=== PATIENT | male | born 1985 | race Hispanic/Latino ===

== ENCOUNTER 2022-11-06 18:40 | Emergency (ER) | payer OTHER ==
[2022-11-06] MEDS ORDERED: KETOROLAC 30 MG/ML INJ ONE (19:39)
[2022-11-06] MEDS ORDERED: ONDANSETRON 4 MG/2 ML VIAL ONE (19:40)
[2022-11-06] MEDS ORDERED: NA CHLORIDE 0.9% 1,000 ML ONE (19:40)
[2022-11-06 20:20] LABS: Absolute Lymphocytes (CBC) 2.6 K/uL (0.7-4.9); Hematocrit 50.4 % (39.6-49.0); Lymphocytes % 41.2 % (15.3-44.8); MCV 94.9 fL (80-100); MPV 8.7 fL (7.6-11.3); Platelets 218 thou/uL (152-406); RBC Red Blood Cell Count 5.32 M/uL (4.33-5.43)
[2022-11-06 20:34] LABS: Albumin 4.6 g/dL (3.4-5.0); Bilirubin Total 0.3 mg/dL (0.2-1.0); Protein, Total 8.4 g/dL (6.4-8.2)
[2022-11-06 20:35] LABS: Specific Gravity 1.008 (1.005-1.030); Urine Bacteria None Seen /HPF (<20); Urine Bilirubin NEGATIVE (Negative); Urine Blood Negative (Negative); Urine Clarity Clear (Clear); Urine Color Colorless (Yellow); Urine Glucose NEGATIVE (Negative); Urine Protein TRACE (Negative); Urine RBC <5 /HPF (None Seen); Urine Urobilinogen Normal (Normal)
--- NOTE | 2022-11-06 20:42 | RAD REPORT ---
EXAM DESCRIPTION: CT - Abdomen Pelvis W Contrast - 11/06/2022 8:31 pm CLINICAL HISTORY: Abdominal pain COMPARISON: none. TECHNIQUE: Computed axial tomography of the abdomen pelvis was obtained. 100 cc Isovue-300 was admin istered intravenously. Oral contrast was not requested which limits evaluation of bowel and appendix All CT scans are performed using dose optimization technique as appropriate and may include automated exposure control or mA/KV adjustment according to patient size. FINDINGS: The liver, spleen, pancreas, adrenal and kidneys appear unremarkable. There is no evidence of diverticulitis. Normal appendix IMPRESSION: No acute abnormality is displayed.
--- NOTE | 2022-11-06 20:55 | ER ---
Nurse's Notes [facility] Name: Orion Ruiz Age: 37 yrs Sex: Male : 1985 Arrival Date: 11/06/2022 Time: 18:40 Bed 17 Private MD: Diagnosis: Abdominal pain, unspecified Presentation: 11/06 19:06 Chief complaint: Patient states: left abdominal pain radiating to left leg starting lg3 this morning. no nausea/vomiting. Coronavirus screen: At this time, unable to obtain information related to travel outside the [place] At this time, the client does not indicate any symptoms associated with coronavirus-19. Ebola Screen: No symptoms or risks identified at this time. Initial Sepsis Screen: Does the patient meet any 2 criteria? No. Patient's initial sepsis screen is negative. Does the patient have a suspected source of infection? No. Patient's initial sepsis screen is negative. Risk Assessment: Do you want to hurt yourself or someone else? Patient reports no desire to harm self or others. Onset of symptoms was November 06, 2022. 19:06 Method Of Arrival: Ambulatory lg3 19:06 Acuity: LIBAN 3 lg3 Triage Assessment: 19:10 General: Appears in no apparent distress. distressed, Behavior is calm, cooperative. lg3 Pain: Complains of pain in anterior aspect of left lateral abdomen Pain radiates to left leg. EENT: No deficits noted. No signs and/or symptoms were reported regarding the EENT system. Neuro: No deficits noted. Lyons Agitation-Sedation Scale (RASS): 0 - Alert and Calm Level of Consciousness is awake, alert, obeys commands, Oriented to person, place, time, situation. Cardiovascular: No deficits noted. Denies chest pain, shortness of breath, Capillary refill < 3 seconds Clubbing of nail beds is absent JVD is absent Patient's skin is warm and dry. Respiratory: No deficits noted. Airway is patent Respiratory effort is even, unlabored, Respiratory pattern is regular, symmetrical. GI: Abdomen is flat, non-distended, Abd is soft X 4 quads Abdomen is tender to palpation in left lower quadrant. : No deficits noted. No signs and/or symptoms were reported regarding the genitourinary system. Derm: No deficits noted. No signs and/or symptoms reported regarding the dermatologic system. Skin is intact, is healthy with good turgor, Skin is dry, Skin is normal, Skin temperature is warm. Musculoskeletal: No deficits noted. Circulation, motion, and sensation intact. Range of motion: intact in all extremities. 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 - Social history:: Smoking status: Patient reports the use of cigarette tobacco products, Patient uses alcohol, on a daily basis. Screenin:31 [facility] ED Fall Risk Assessment (Adult) Score/Fall Risk Level 0 - 2 = Low Risk [facility] Oriented to surroundings, Maintained a safe environment, Hourly rounding (assess needs \T\ fall precautionary measures) done. Abuse screen: Denies threats or abuse. Denies injuries from another. Nutritional screening: No deficits noted. Tuberculosis screening: No symptoms or risk factors identified. Assessment: 19:23 Reassessment: See triage assessment. nj1 20:00 Reassessment: Patient appears in no apparent distress at this time. Patient and/or [facility] family updated on plan of care and expected duration. Pain level reassessed. Patient is alert, oriented x 3, equal unlabored respirations, skin warm/dry/pink. Pain: Complains of pain in abdomen and left leg Pain currently is 10 out of 10 on a pain scale. 21:00 Reassessment: Patient appears in no apparent distress at this time. No changes from [facility] previously documented assessment. Patient and/or family updated on plan of care and expected duration. Pain level reassessed. Patient is alert, oriented x 3, equal unlabored respirations, skin warm/dry/pink. Vital Signs: 19:06 BP 118 / 94; Pulse 103; Resp 17 S; Pulse Ox 98% on R/A; Weight 61.23 kg (R); Height 5 lg3 ft. 7 in. (R); Pain 10/10; 20:10 BP 117 / 85; Pulse 81; Resp 18; Pulse Ox 97% on R/A; nj1 21:00 BP 115 / 93; Pulse 84; Resp 18; Pulse Ox 99% on R/A; Pain 10/10; nj1 19:06 Body Mass Index 21.14 (61.23 kg, 170.18 cm) lg3 19:06 Pain Scale: Adult lg3 21:00 Pain Scale: Adult nj1 ED Course: 18:43 Patient arrived in ED. im 18:44 Siri Tapia [facility]-C [facility] kb 18:44 Jake Bourgeois MD is Attending Physician. kb 19:10 Triage completed. lg3 19:10 Arm band placed on left wrist. lg3 19:22 Khushbu Dumont, FAIZA is Primary Nurse. nj1 20:00 Patient has correct armband on for positive identification. Bed in low position. Call nj1 light in reach. Adult w/ patient. Provided Education on: fall precautions, call light. 20:05 Inserted saline lock: 20 gauge in right antecubital area, using aseptic technique. nj1 Blood collected. 20:31 CT Abd/Pelvis - IV Contrast Only In Process Unspecified. EDMS 21:00 No provider procedures requiring assistance completed. IV discontinued, intact, nj1 bleeding controlled. Administered Medications: 20:05 Drug: NS 0.9% IV 1000 ml Route: IV; Rate: 1 bolus; Site: right antecubital; nj1 21:00 Follow up: Response: No adverse reaction; IV Status: Completed infusion; IV Intake: nj1 1000ml 20:05 Drug: TORadol - Ketorolac IVP 15 mg Route: IVP; Site: right antecubital; nj1 21:00 Follow up: Response: No adverse reaction nj1 20:05 Drug: Ondansetron IVP 4 mg Route: IVP; Site: right antecubital; nj1 21:00 Follow up: Response: No adverse reaction nj1 Medication: 21:37 VIS not applicable for this client. nj1 Intake: 21:00 IV: 1000ml; Total: 1000ml. nj1 Outcome: 20:55 Discharge ordered by . kb 21:00 Discharged to home ambulatory, with family. nj1 21:00 Condition: stable 21:00 Discharge instructions given to patient, Instructed on discharge instructions, follow up and referral plans. medication usage, Demonstrated understanding of instructions, follow-up care, medications, Prescriptions given X 1. 21:19 Patient left the ED. rv1 Signatures: Dispatcher [employer] EDOR Siri Tapia FNP-C FNP-Ckb Taya Escobar, RN RN lg3 Andressa Painting rv1 Khushbu Dumont RN RN nj1 Tiff Howard
--- NOTE | 2022-11-06 20:55 | EDPHYS ---
Physician Documentation [facility] Name: Orion Ruiz Age: 37 yrs Sex: Male : 1985 Arrival Date: 11/06/2022 Time: 18:40 Bed 17 Private MD: ED Physician Jake Bourgeois HPI: 11/07 01:21 This 37 yrs old Male presents to ER via Ambulatory with complaints of Flank kb Pain, Leg Pain. 01:21 Patient reports left-sided abdominal pain that radiates down left leg that began this kb morning. Denies injury or trauma. Denies nausea, vomiting, diarrhea, fever. Denies urinary symptoms or blood in stool.. 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 - Social history:: Smoking status: Patient reports the use of cigarette tobacco products, Patient uses alcohol, on a daily basis. ROS: 11/07 01:20 Constitutional: Negative for fever, chills, and weight loss. kb Abdomen/GI: Positive for abdominal pain, Negative for nausea, vomiting, and diarrhea. All other systems are negative. Exam: 01:20 Constitutional: This is a well developed, well nourished patient who is awake, alert, kb and in no acute distress. Head/Face: Normocephalic, atraumatic. ENT: Moist Mucous membranes Cardiovascular: Regular rate and rhythm with a normal S1 and S2. No gallops, murmurs, or rubs. No pulse deficits. Respiratory: Respirations even and unlabored. No increased work of breathing. Talking in full sentences Skin: Warm, dry with normal turgor. Normal color. MS/ Extremity: Pulses equal, no cyanosis. Neurovascular intact. Full, normal range of motion. Neuro: Awake and alert, GCS 15, oriented to person, place, time, and situation. Moves all extremities. Normal gait. 01:20 Abdomen/GI: Inspection: abdomen appears normal, Bowel sounds: normal, Palpation: soft, in all quadrants, moderate abdominal tenderness, in the left upper quadrant and left lower quadrant. Vital Signs: 11/06 19:06 BP 118 / 94; Pulse 103; Resp 17 S; Pulse Ox 98% on R/A; Weight 61.23 kg (R); Height 5 lg3 ft. 7 in. (R); Pain 10/10; 20:10 BP 117 / 85; Pulse 81; Resp 18; Pulse Ox 97% on R/A; nj1 21:00 BP 115 / 93; Pulse 84; Resp 18; Pulse Ox 99% on R/A; Pain 10/10; nj1 19:06 Body Mass Index 21.14 (61.23 kg, 170.18 cm) lg3 19:06 Pain Scale: Adult lg3 21:00 Pain Scale: Adult nj1 MDM: 18:44 Patient medically screened. kb 11/07 01:20 Differential diagnosis: nephrolithiasis, pyelonephritis, UTI, diverticulitis, kb pancreatitis. Data reviewed: vital signs, nurses notes. Counseling: I had a detailed discussion with the patient and/or guardian regarding the historical points, exam findings, and any diagnostic results supporting the discharge/admit diagnosis, lab results, radiology results, the need for outpatient follow up, a family practitioner, to return to the emergency department if symptoms worsen or persist or if there are any questions or concerns that arise at home. 11/06 19:11 Order name: CBC with Diff; Complete Time: 20:24 kb 11/06 19:11 Order name: CMP; Complete Time: 20:54 kb 11/06 19:11 Order name: Lipase; Complete Time: 20:54 kb 11/06 19:11 Order name: Urinalysis w/ reflexes; Complete Time: 20:54 kb 11/06 19:11 Order name: CT Abd/Pelvis - IV Contrast Only; Complete Time: 20:54 kb 11/06 19:11 Order name: IV Saline Lock; Complete Time: 20:07 kb 11/06 19:11 Order name: Labs collected and sent; Complete Time: 20:07 kb Administered Medications: 11/06 20:05 Drug: NS 0.9% IV 1000 ml Route: IV; Rate: 1 bolus; Site: right antecubital; nj1 21:00 Follow up: Response: No adverse reaction; IV Status: Completed infusion; IV Intake: nj1 1000ml 20:05 Drug: TORadol - Ketorolac IVP 15 mg Route: IVP; Site: right antecubital; nj1 21:00 Follow up: Response: No adverse reaction nj1 20:05 Drug: Ondansetron IVP 4 mg Route: IVP; Site: right antecubital; nj1 21:00 Follow up: Response: No adverse reaction nj1 Disposition Summary: 11/06/22 20:55 Discharge Ordered Location: Home kb Condition: Stable kb Diagnosis - Abdominal pain, unspecified kb Followup: kb - With: Emergency Department - When: As needed - Reason: Worsening of condition Followup: kb - With: Private Physician - When: 2 - 3 days - Reason: Recheck today's complaints, Continuance of care, Re-evaluation by your physician Discharge Instructions: - Discharge Summary Sheet kb - Abdominal Pain, Adult, [id number] kb Forms: - Medication Reconciliation Form kb - Thank You Letter kb - Antibiotic Education kb - Prescription Opioid Use kb - Patient Portal Instructions kb - Leadership Thank You Letter kb Prescriptions: - Diclofenac Sodium 75 mg Oral tablet,delayed release (DR/EC) - take 1 tablet by ORAL route 2 times per day As needed; 30 tablet; Refills: 0, kb Product Selection Permitted Signatures: Dispatcher [employer] Siri Trotter, SUSAN-C SUSAN-Taya Sweet, RN RN lg3 Khushbu Dumont, RN RN nj1
[2022-11-06 22:09] VITALS: BP 117/85; O2SAT 97
== END 2022-11-06 21:19 | disposition home or self-care (01) ==
LOC: ER 18:40
DX: R10.9 Unspecified abdominal pain (principal); F17.210 Nicotine dependence, cigarettes, uncomplicated; F10.90 Alcohol use, unspecified, uncomplicated
CPT/HCPCS: 96361; 85025; 81001; 36415; 82565; 83690; 80053; 74177; 96375; 96374; 99284; Q9967; J2405; J7030